=== PATIENT | female | born 1960 | race Caucasian/White ===

== ENCOUNTER 2022-03-14 14:46 | Emergency (ER) | payer MEDICAID, OTHER ==
[~2022-03-14] VITALS: Ht 162.6 cm; Wt 54.5 kg
[~2022-03-14 14:46] MED LIST: ATOR20TA86 PO; FOLI-130 PO; GABA-1181 PO; PARO-38 PO; PHENY100 PO; QUET100T PO
[2022-03-14 15:05] VITALS: BP 130/93
[2022-03-14] MEDS ORDERED: ACETAMINOPHEN/CODEINE 300-30 MG TABLET PO ONE (15:15)
[2022-03-14] MEDS ORDERED: KETOROLAC TROMETHAMINE 60 MG/2 ML VIAL IM ONE (15:15)
[2022-03-14] MEDS ORDERED: ACET-2080 PO (15:57)
[2022-03-14] MEDS ORDERED: IBUP-1554 PO (15:57)
== END 2022-03-14 17:05 | disposition home or self-care (01) ==
LOC: EMS 14:46
DX: M25.552 Pain in left hip (principal); F31.10 Bipolar disorder, current episode manic without psychotic features, unspecified; J45.909 Unspecified asthma, uncomplicated; F20.9 Schizophrenia, unspecified; F17.210 Nicotine dependence, cigarettes, uncomplicated; Z87.19 Personal history of other diseases of the digestive system; Z86.19 Personal history of other infectious and parasitic diseases; Z86.59 Personal history of other mental and behavioral disorders; Z87.898 Personal history of other specified conditions; Z98.890 Other specified postprocedural states; Z88.8 Allergy status to other drugs, medicaments and biological substances
CPT/HCPCS: 73503; 73552; 96372; 99284; J1885

== ENCOUNTER 2024-04-08 17:40 | Emergency (ER) | payer OTHER ==
[~2024-04-08] VITALS: Ht 160 cm; Wt 50.3 kg
[~2024-04-08 17:40] MED LIST changes: +ACET-2080 PO; +ATOR20TA PO; -ATOR20TA86 PO; +IBUP-1554 PO; +PHEN100C10 PO; -PHENY100 PO; -QUET100T PO; +QUET200T PO
[2024-04-08 18:44] LABS: APPEARANCE,URINE CLEAR (CLEAR); BILIRUBIN,URINE NEGATIVE (NEGATIVE); COLOR,URINE LIGHT YELLOW (YELLOW); GLUCOSE, URINE (UA) NEGATIVE (NEGATIVE); KETONES,URINE NEGATIVE (NEGATIVE); LEUKOCYTE ESTERASE ,URINE NEGATIVE (NEGATIVE); NITRATE,URINE NEGATIVE (NEGATIVE); OCCULT BLOOD,URINE NEGATIVE (NEGATIVE); PH,URINE 6.5 (5.0-8.0); PH,URINE DRUG SCREEN 6.5 (5.0-8.0); PROTEIN,URINE NEGATIVE (NEGATIVE); UROBILINOGEN,URINE <=1.0 mg/dL (<=1.0)
[2024-04-08 18:51] LABS: ALCOHOL, URINE DRUG SCREEN POSITIVE (NEGATIVE); AMPHET/METH SCREEN,URINE NEGATIVE (NEGATIVE); BARBITURATE SCREEN, URINE NEGATIVE (NEGATIVE); BENZODIAZEPINES SCREEN,URINE NEGATIVE (NEGATIVE); CANNABINOID SCREEN,URINE NEGATIVE (NEGATIVE); COCAINE SCREEN,URINE NEGATIVE (NEGATIVE); METHADONE SCREEN, URINE NEGATIVE (NEGATIVE); OPIATE SCREEN,URINE NEGATIVE (NEGATIVE); PHENCYCLIDINE SCREEN,URINE NEGATIVE (NEGATIVE)
[2024-04-08] MEDS ORDERED: CARI1.5C PO (20:21)
[2024-04-08] MEDS ORDERED: ALPR0.255 PO (20:21)
[2024-04-08] MEDS ORDERED: FAMO20TA8 PO (20:21)
[2024-04-08] MEDS ORDERED: BUSP10TA23 PO (20:21)
[2024-04-08] MEDS ORDERED: METH-811 PO (20:21)
[2024-04-08] MEDS ORDERED: HYDR50CA6 PO (20:21)
[2024-04-08] MEDS ORDERED: GABA800T9 PO (20:21)
[2024-04-08] MEDS ORDERED: ALBU18HF12 IH (20:21)
[2024-04-08] MEDS ORDERED: QUET200T30 PO (20:21)
[2024-04-08] MEDS ORDERED: TRAZ300T2 PO (20:21)
[2024-04-08] MEDS: NICOTINE 21 MG/24 HOUR PATCH TD ONE (20:23)
[2024-04-08 20:28] LABS: BASOPHILS % (AUTO) 0.6 % (0.0-2.0); EOSINOPHILS % (AUTO) 0.3 % (1.0-6.0); HEMATOCRIT 47.5 % (36-46); HEMOGLOBIN 16.6 g/dL (12.0-16.0); LYMPHOCYTES # (AUTO) 3.5 K/uL (1.0-4.8); LYMPHOCYTES % (AUTO) 42.3 % (22.0-44.0); MEAN CORPUSCULAR HEMOGLOBIN 32.5 pg (26.0-34.0); MEAN CORPUSCULAR HGB CONC 34.9 G/dL (31.0-37.0); MEAN CORPUSCULAR VOLUME 93 fL (80-100); MONOCYTES # (AUTO) 0.4 K/uL (0.1-1.0); MONOCYTES % (AUTO) 5.3 % (2.0-9.0); NEUTROPHILS # (AUTO) 4.3 K/uL (1.8-7.7); NEUTROPHILS % (AUTO) 51.5 % (40.0-70.0); PLATELET COUNT (AUTO) 145 K/uL (150-450); RED CELL DISTRIBUTION WIDTH 11.8 % (11.5-14.5); WHITE BLOOD COUNT (AUTO) 8.4 K/uL (4.5-11.0)
[2024-04-08 20:36] LABS: ANION GAP 15 mmol/L (8-16); CALCIUM, TOTAL 9.8 mg/dL (8.8-10.5); CARBON DIOXIDE 23 mmol/L (22-29); CHLORIDE 103 mmol/L (98-107); CREATININE 0.61 mg/dL (0.60-1.30); GLOMERULAR FILTR. RATE CALC > 60 mL/min (>60); GLUCOSE,RANDOM 120 mg/dL (70-110); POTASSIUM 3.8 mmol/L (3.5-5.1); SODIUM SERUM 141 mmol/L (136-145); UREA NITROGEN, BLOOD 11 mg/dL (7-18)
[2024-04-08 20:38] LABS: LIPASE 40 U/L (16-77)
[2024-04-08 20:41] LABS: ALCOHOL, BLOOD (SERUM) 76 mg/dL (0-10)
[2024-04-08 20:46] LABS: TROPONIN I-HIGH SENSITIVITY Less Than 4 ng/L (<51)
[2024-04-08 20:51] LABS: LACTIC ACID 4.6 mmol/L (0.4-2.0)
[2024-04-08] MEDS: SODIUM CHLORIDE 0.9% 2,000 ML IV ONE (21:37)
[2024-04-08] MEDS: LORazepam 2 MG/ML VIAL IVP ONE (21:39)
[2024-04-08 22:35] LABS: CREATINE KINASE, TOTAL ONLY 159 U/L (26-192)
[2024-04-08 22:43] LABS: COVID AG,FIA SOURCE NASAL SWAB
[2024-04-08] MEDS: DiphenhydrAMINE HCL 50 MG/ML VIAL IVP ONE (22:44)
[2024-04-08 22:59] LABS: SARS-COV2 (COVID) ANTIGEN,FIA Negative (Negative)
[2024-04-09 00:20] LABS: PH,URINE DRUG SCREEN 6.5 (5.0-8.0)
[2024-04-09 00:28] LABS: ALCOHOL, URINE DRUG SCREEN NEGATIVE (NEGATIVE); AMPHET/METH SCREEN,URINE NEGATIVE (NEGATIVE); BARBITURATE SCREEN, URINE NEGATIVE (NEGATIVE); BENZODIAZEPINES SCREEN,URINE NEGATIVE (NEGATIVE); CANNABINOID SCREEN,URINE NEGATIVE (NEGATIVE); COCAINE SCREEN,URINE NEGATIVE (NEGATIVE); METHADONE SCREEN, URINE NEGATIVE (NEGATIVE); OPIATE SCREEN,URINE NEGATIVE (NEGATIVE); PHENCYCLIDINE SCREEN,URINE NEGATIVE (NEGATIVE)
[2024-04-09] MEDS: LORazepam 1 MG TABLET PO ONE (02:31)
[2024-04-09] MEDS: LOPERAMIDE HCL 2 MG CAPSULE PO ONE (02:31)
[2024-04-09 03:07] VITALS: BP 133/87; PULSE 95; RESP 16
== END 2024-04-09 04:07 | disposition home or self-care (01) ==
LOC: EMS 17:40
DX: F10.10 Alcohol abuse, uncomplicated (principal); J45.909 Unspecified asthma, uncomplicated; F31.9 Bipolar disorder, unspecified; F20.9 Schizophrenia, unspecified; F17.210 Nicotine dependence, cigarettes, uncomplicated; Z20.822 Contact with and (suspected) exposure to COVID-19
CPT/HCPCS: 99285; 96374; 71045; 96361; 96375; 87426; 80048; 81003; 82550; 83605; 83690; 83735; 84484; 85025; 36415; 93005; 80307; G0480; J1200; J2060

== ENCOUNTER 2024-06-01 12:24 | Emergency (ER) | payer OTHER ==
[~2024-06-01] VITALS: Ht 162.6 cm; Wt 51.4 kg
[~2024-06-01 12:24] MED LIST changes: -ACET-2080 PO; +ALBU18HF12 IH; +ALPR0.255 PO; -ATOR20TA PO; +BUSP10TA23 PO; +CARI1.5C PO; +FAMO20TA8 PO; -FOLI-130 PO; -GABA-1181 PO; +GABA800T9 PO; +HYDR50CA6 PO; -IBUP-1554 PO; +METH-811 PO; -PARO-38 PO; -QUET200T PO; +QUET200T30 PO; +TRAZ300T2 PO
[2024-06-01 12:55] VITALS: TEMP 98.5
[2024-06-01 13:05] LABS: APPEARANCE,URINE CLEAR (CLEAR); BILIRUBIN,URINE NEGATIVE (NEGATIVE); COLOR,URINE LIGHT YELLOW (YELLOW); GLUCOSE, URINE (UA) NEGATIVE (NEGATIVE); KETONES,URINE NEGATIVE (NEGATIVE); LEUKOCYTE ESTERASE ,URINE NEGATIVE (NEGATIVE); NITRATE,URINE NEGATIVE (NEGATIVE); OCCULT BLOOD,URINE NEGATIVE (NEGATIVE); PROTEIN,URINE NEGATIVE (NEGATIVE); SPECIFIC GRAVITIY, URINE 1.009 (1.003-1.030); UROBILINOGEN,URINE <=1.0 mg/dL (<=1.0)
[2024-06-01 13:13] LABS: AMPHET/METH SCREEN,URINE NEGATIVE (NEGATIVE); BARBITURATE SCREEN, URINE NEGATIVE (NEGATIVE); BENZODIAZEPINES SCREEN,URINE NEGATIVE (NEGATIVE); CANNABINOID SCREEN,URINE NEGATIVE (NEGATIVE); COCAINE SCREEN,URINE NEGATIVE (NEGATIVE); METHADONE SCREEN, URINE NEGATIVE (NEGATIVE); OPIATE SCREEN,URINE POSITIVE (NEGATIVE); PHENCYCLIDINE SCREEN,URINE NEGATIVE (NEGATIVE)
[2024-06-01 13:14] LABS: ALCOHOL, URINE DRUG SCREEN NEGATIVE (NEGATIVE)
[2024-06-01 13:25] LABS: BASOPHILS % (AUTO) 0.6 % (0.0-2.0); EOSINOPHILS % (AUTO) 1.3 % (1.0-6.0); HEMATOCRIT 40.7 % (36-46); LYMPHOCYTES # (AUTO) 2.7 K/uL (1.0-4.8); LYMPHOCYTES % (AUTO) 39.6 % (22.0-44.0); MEAN CORPUSCULAR HGB CONC 34.4 G/dL (31.0-37.0); MEAN CORPUSCULAR VOLUME 96 fL (80-100); MONOCYTES # (AUTO) 0.5 K/uL (0.1-1.0); MONOCYTES % (AUTO) 7.3 % (2.0-9.0); NEUTROPHILS # (AUTO) 3.5 K/uL (1.8-7.7); NEUTROPHILS % (AUTO) 51.2 % (40.0-70.0); PLATELET COUNT (AUTO) 98 K/uL (150-450); RED BLOOD CELL COUNT(AUTO) 4.24 MIL/uL (4.00-5.20); WHITE BLOOD COUNT (AUTO) 6.8 K/uL (4.5-11.0)
[2024-06-01 13:36] LABS: ANION GAP 9 mmol/L (8-16); CALCIUM, TOTAL 8.6 mg/dL (8.8-10.5); CARBON DIOXIDE 28 mmol/L (22-29); CHLORIDE 103 mmol/L (98-107); CREATININE 0.58 mg/dL (0.60-1.30); GLOMERULAR FILTR. RATE CALC > 60 mL/min (>60); GLUCOSE,RANDOM 79 mg/dL (70-110); POTASSIUM 3.5 mmol/L (3.5-5.1); SODIUM SERUM 140 mmol/L (136-145); UREA NITROGEN, BLOOD 10 mg/dL (7-18)
[2024-06-01 13:38] LABS: ALCOHOL, BLOOD (SERUM) < 3 mg/dL (0-10)
[2024-06-01] MEDS: HYDROmorphone HCL 2 MG TABLET PO ONE (15:05)
[2024-06-01] MEDS: NICOTINE 21 MG/24 HOUR PATCH TD ONE (15:06)
[2024-06-01 19:11] VITALS: BP 106/58; PULSE 76; RESP 18
== END 2024-06-01 19:12 | disposition home or self-care (01) ==
LOC: EMS 12:38
DX: R41.0 Disorientation, unspecified (principal); F20.9 Schizophrenia, unspecified; F17.210 Nicotine dependence, cigarettes, uncomplicated; J44.9 Chronic obstructive pulmonary disease, unspecified; Z88.1 Allergy status to other antibiotic agents; Z88.8 Allergy status to other drugs, medicaments and biological substances; Z79.899 Other long term (current) drug therapy
CPT/HCPCS: 99284; 70450; 80048; 85025; 36415; 80307; 81003; G0480